=== PATIENT | female | born 1980 | race Caucasian/White ===

== ENCOUNTER 2018-07-29 17:12 | Emergency (ER) | payer MEDICAID ==
[~2018-07-29] VITALS: Ht 165.1 cm; Wt 63.6 kg
[2018-07-29 17:36] VITALS: BP 133/79
--- NOTE | 2018-07-29 18:52 | NUR ---
PT AMBUALTED TO ER BED 06
--- NOTE | 2018-07-29 19:10 | NUR ---
PT BIB self C/O L sided lower back pain x5 days. PT reports constant pain at 8/10 in L lower back. PT deneis fever, N/V/D, or burning urination. PT has been taking motrin for pain. ER MD to see PT. Safety precautions in place. Will Continue to monitor. medhx: R ovarian tumor and removal Rx: motrin
[2018-07-29] MEDS ORDERED: HYDROcodone/APAP 5/325 MG 1 TAB TAB PO ONE (19:55)
--- NOTE | 2018-07-29 20:09 | NUR ---
po pain meds given-nadr at this
--- NOTE | 2018-07-29 20:20 | NUR ---
PT returned from CT at this time.
[2018-07-29 21:08] VITALS: BP 116/68
== END 2018-07-29 21:06 | disposition home or self-care (01) ==
LOC: MED 17:12
DX: K59.00 Constipation, unspecified (principal); J45.909 Unspecified asthma, uncomplicated; M54.5 Low back pain
CPT/HCPCS: 81002; 81025; 99284

== ENCOUNTER 2018-09-07 16:54 | Emergency (ER) | payer MEDICAID ==
[~2018-09-07] VITALS: Ht 157.5 cm; Wt 56.7 kg
[2018-09-07 17:18] VITALS: BP 158/101
--- NOTE | 2018-09-07 19:48 | NUR ---
PT ambulated to bed 06.
--- NOTE | 2018-09-07 20:20 | NUR ---
PT TAKEN TO RADIOLOGY VIA WHEELCHAIR BY TECH.
--- NOTE | 2018-09-07 20:35 | NUR ---
PATIENT PRESENTS TO ED WITH NECK PAIN RADIATES TO LEFT ARM. PT STATES SHE HAS 9/10 BURNING, ACHING NECK PAIN THAT RADIATES TO LEFT ARM; FEELS HEAVE AND NUMB. MILD WEAKNESS TO LEFT HAND STRENGTH, SYMMETRICAL SMILE, NO FACIAL DROOPING, CLEAR SPEACH. PT STATES TO BE TAKING IBUPROFEN AT HOME W/O RELIEF. DENIES N/V/D; SKIN IS PINK/WARM/DRY; AAOX4 WITH EVEN AND STEADY GAIT; LUNGS CLEAR BL; HR EVEN AND REGULAR; PT DENIES ANY FEVER, CP, SOB, OR COUGH AT THIS TIME; VSS; PATIENT POSITIONED FOR COMFORT; HOB ELEVATED; BEDRAILS UP X1; BED DOWN. ER MD MADE AWARE OF PT STATUS. PMH: DENIES RX: DENIES
--- NOTE | 2018-09-07 20:57 | NUR ---
Dr. Mccauley evaluating patient at bedside.
[2018-09-07 21:49] VITALS: BP 166/85
--- NOTE | 2018-09-07 21:50 | NUR ---
Patient discharged with v/s stable. Written and verbal after care instructions given and explained. Patient alert, oriented and verbalized understanding of instructions. Ambulatory with steady gait. All questions addressed prior to discharge. ID band removed. Patient advised to follow up with PMD. Rx of ROBAXIN AND IBUPROFEN given. Patient educated on indication of medication including possible reaction and side effects. Opportunity to ask questions provided and answered.
== END 2018-09-07 21:50 | disposition home or self-care (01) ==
LOC: MED 16:54
DX: M62.838 Other muscle spasm (principal); M54.12 Radiculopathy, cervical region; J45.909 Unspecified asthma, uncomplicated
CPT/HCPCS: 72040; 99283

== ENCOUNTER 2019-06-15 15:21 | Emergency (ER) | payer MEDICAID ==
[~2019-06-15] VITALS: Ht 157.5 cm; Wt 59.0 kg
[2019-06-15 15:36] VITALS: BP 143/79
--- NOTE | 2019-06-15 15:40 | NUR ---
PT AMB TO BED 4.
--- NOTE | 2019-06-15 15:59 | NUR ---
PT PTESENTS TO ED WITH C/O PRODUCTIVE COUGH, SORE THROAT AND FEVER X 5 DAYS. PT PRESENTS WITH NO FEVER AT THIS TIME. PT STATES THAT SHE HAS HAD NAUSEA TODAY. BOWEL SOUNDS ACTIVE. PT STATES THAT SHE IS EXPERIENCING CHEST DISCOMFORT FROM COUGHING. PT STATES THAT SHE HAS A THROBBING HEADACHE AND RATES PAIN 8/10 AT THIS TIME. PT STATES THAT SHE TOOK TYLENOL SINUS AT 0930 TODAY. PT DENIES V/D, AND CP AT THIS TIME. SKIN IS WARM, PINK, AND DRY. PT PRESENTS WITH A CLEAR SPEECH AND IS CONVERSING APPROPRIATELY. PT IS POSITIONED FOR COMFORT, HOB ELEVATED, BED RAIL UP X 1. ER MD TO SEE PT. NKA HX: SINUS RX: DENIES
--- NOTE | 2019-06-15 16:13 | NUR ---
Patient being evaluated by LEILA ORTIZ at bedside.
--- NOTE | 2019-06-15 16:30 | NUR ---
X RAY AT BEDSIDE
[2019-06-15] MEDS ORDERED: ACETAMINOPHEN 325 MG TAB PO SCH (16:35)
--- NOTE | 2019-06-15 16:36 | NUR ---
Patient appears to be resting comfortably in bed. Respirations even and unlabored. Pt using cellphone at this time. Will continue to monitor.
[2019-06-15 16:51] VITALS: BP 136/82
--- NOTE | 2019-06-15 16:51 | NUR ---
Patient discharged with v/s stable. Written and verbal after care instructions given and explained. Patient alert, oriented and verbalized understanding of instructions. Ambulatory with steady gait. All questions addressed prior to discharge. ID band removed. Patient advised to follow up with PMD. Rx of FLONASE, AUGMENTIN, AND PROMETHAZINE given. Patient educated on indication of medication including possible reaction and side effects. Opportunity to ask questions provided and answered.
== END 2019-06-15 16:51 | disposition home or self-care (01) ==
LOC: MED 15:21
DX: J06.9 Acute upper respiratory infection, unspecified (principal); J45.909 Unspecified asthma, uncomplicated
CPT/HCPCS: 71045; 99283; Q0092

== ENCOUNTER 2019-09-17 09:05 | Emergency (ER) | payer MEDICAID, OTHER ==
[~2019-09-17] VITALS: Ht 157.5 cm; Wt 62.6 kg
[2019-09-17 09:10] VITALS: BP 155/79
--- NOTE | 2019-09-17 09:15 | NUR ---
PT TO ER BED 2
--- NOTE | 2019-09-17 09:18 | NUR ---
PT C/O EPISTAXIS SINCE 4AM TODAY ACCOMPANIED BY THROBBING FRONTAL HEADACHE THAT BEGAN LAST NIGHT. PT CURRENTLY HAS TISSUE PACKED IN R NARE. PT DENIES INJURY TO NOSE OR HEAD, NO NOTICABLE BLEEDING AT THIS TIME. REPORTS HEAVY MENTRUAL PEROIDS, DIZZINESS, FATIGUE OCCASIONALLY. PATIENT STATES PAIN OF 2/10 AT THIS TIME; VSS; PATIENT POSITIONED FOR COMFORT; HOB ELEVATED; BEDRAILS UP X1; BED DOWN. ER MD MADE AWARE OF PT STATUS.
[2019-09-17 10:17] LABS: BASOPHILS # (AUTO) 0.1 K/uL (0.00-0.22); BASOPHILS % (AUTO) 1.2 % (0.0-2.0); EOSINOPHILS # (AUTO) 0.1 K/uL (0-0.4); EOSINOPHILS % (AUTO) 1.6 % (0.0-4.0); HEMATOCRIT 24.5 % (36-48); HEMOGLOBIN 7.7 g/dL (12.0-16.0); LYMPHOCYTES # (AUTO) 1.3 K/uL (2.5-16.5); LYMPHOCYTES % (AUTO) 22.6 % (20.5-51.1); MEAN CORPUSCULAR HEMOGLOBIN 19 pg (27-31); MEAN CORPUSCULAR HGB CONC 32 g/dL (33-37); MEAN CORPUSCULAR VOLUME 61.4 fL (80-94); MONOCYTES # (AUTO) 0.4 K/uL (0.8-1.0); MONOCYTES % (AUTO) 7.1 % (1.7-9.3); NEUTROPHILS # (AUTO) 3.8 K/uL (1.8-7.7); NEUTROPHILS % (AUTO) 67.5 % (42.2-75.2); PLATELET COUNT (AUTO) 282 K/uL (140-450); RED BLOOD CELL COUNT(AUTO) 3.99 MIL/uL (4.20-5.40); RED CELL DISTRIBUTION WIDTH 18.7 % (11.6-13.7); WHITE BLOOD COUNT (AUTO) 5.6 K/uL (4.8-10.8)
[2019-09-17] MEDS ORDERED: KETOROLAC 30 MG/ML VIAL IVP ONE (11:15)
[2019-09-17] MEDS ORDERED: NACL 0.9% 1,000 ML IV ONE (11:15)
--- NOTE | 2019-09-17 11:15 | NUR ---
PT STATES HAVING 9/[address] ACOSTA NOTIFIED.
[2019-09-17] MEDS ORDERED: PANTOPRAZOLE 40 MG INJ VIAL IVP ONE (11:20)
[2019-09-17] MEDS ORDERED: ONDANSETRON 4 MG/2 ML VIAL IVP ONE (11:20)
--- NOTE | 2019-09-17 11:30 | NUR ---
PT IS RESTING IN THE BED W/ VSS.
[2019-09-17 12:14] LABS: HEMATOCRIT 26.9 % (36-48); HEMOGLOBIN 8.3 g/dL (12.0-16.0)
[2019-09-17 12:41] VITALS: BP 124/43
--- NOTE | 2019-09-17 12:42 | NUR ---
Patient discharged with v/s stable. Written and verbal after care instructions given and explained. Patient alert, oriented and verbalized understanding of instructions. Ambulatory with steady gait. All questions addressed prior to discharge. ID band removed. Patient advised to follow up with PMD. Rx of OXYMETAZOLINE given. Patient educated on indication of medication including possible reaction and side effects. Opportunity to ask questions provided and answered.
== END 2019-09-17 12:42 | disposition home or self-care (01) ==
LOC: MED 09:05
DX: R04.0 Epistaxis (principal); D64.9 Anemia, unspecified; R03.0 Elevated blood-pressure reading, without diagnosis of hypertension; J45.909 Unspecified asthma, uncomplicated; F14.90 Cocaine use, unspecified, uncomplicated; Z79.899 Other long term (current) drug therapy
CPT/HCPCS: 36415; 85018; 85025; 96374; 96375; 99284; C9113; J1885; J2405; J7030

== ENCOUNTER 2021-05-23 12:30 | Observation (INO) | payer OTHER ==
[~2021-05-23] VITALS: Ht 157.5 cm; Wt 59.0 kg
[2021-05-23 12:52] VITALS: BP 136/87
--- NOTE | 2021-05-23 12:55 | NUR ---
PT TO WAIT IN LOBBY
--- NOTE | 2021-05-23 13:27 | NUR ---
PT AMBULATED TO BED
--- NOTE | 2021-05-23 13:35 | NUR ---
40 Y FEMALE FROM HOME DUE TO ABDOMINAL PAIN X2 DAYS. PT STATED SHE HAS BEEN EXPERICNING UPPER/MID ABDOMINAL PAIN X2 DAYS. WITH NAUSEA/VOMITING. DENIES ANY CONSTIPATION OR DIARRHEA CHEST PAIN, SOB, OR CHILLS AT THIS TIME. PT HAS TAKEN TUMS AT HOME, BUT HAS PROVIDED NO RELIEF. PAIN IS CURRENTLY 8/10 THAT IS FELT LIKE A BURNING SENSATION. SOFT, NON TENDER. ACTIVE BOWEL SOUNDS. PMH: DENIES NKA
[2021-05-23 14:01] LABS: BASOPHILS # (AUTO) 0.1 K/uL (0.00-0.22); BASOPHILS % (AUTO) 1.5 % (0.0-2.0); EOSINOPHILS # (AUTO) 0.1 K/uL (0-0.4); EOSINOPHILS % (AUTO) 1.2 % (0.0-4.0); HEMATOCRIT 23.2 % (36-48); LYMPHOCYTES # (AUTO) 1.5 K/uL (2.5-16.5); LYMPHOCYTES % (AUTO) 27.7 % (20.5-51.1); MEAN CORPUSCULAR HEMOGLOBIN 17 pg (27-31); MEAN CORPUSCULAR HGB CONC 30 g/dL (33-37); MEAN CORPUSCULAR VOLUME 57.6 fL (80-94); MONOCYTES # (AUTO) 0.5 K/uL (0.8-1.0); MONOCYTES % (AUTO) 10.1 % (1.7-9.3); NEUTROPHILS # (AUTO) 3.2 K/uL (1.8-7.7); NEUTROPHILS % (AUTO) 59.5 % (42.2-75.2); PLATELET COUNT (AUTO) 351 K/uL (140-450); RED BLOOD CELL COUNT(AUTO) 4.04 MIL/uL (4.20-5.40); RED CELL DISTRIBUTION WIDTH 20.6 % (11.6-13.7); WHITE BLOOD COUNT (AUTO) 5.3 K/uL (4.8-10.8)
[2021-05-23 14:21] LABS: HEMOGLOBIN 6.9 g/dL (12.0-16.0)
[2021-05-23 14:30] LABS: ALBUMIN 3.6 g/dL (3.4-5.0); ANION GAP 12.3 (8-16); CARBON DIOXIDE 25.7 mmol/L (21-32); CREATININE 0.6 mg/dL (0.6-1.3); TOTAL BILIRUBIN 0.3 mg/dL (0.0-1.0)
--- NOTE | 2021-05-23 14:37 | NUR ---
DR SANTOYO AT BEDSIDE EXAMINING PT
[2021-05-23] MEDS ORDERED: ONDANSETRON 4 MG/2 ML VIAL IVP ONE (14:50)
[2021-05-23] MEDS ORDERED: NACL 0.9% 1,000 ML IV ONE (14:50)
[2021-05-23] MEDS ORDERED: ACETAMINOPHEN 325 MG TAB PO ONE (15:15)
[2021-05-23] MEDS ORDERED: MORPHINE SULFATE 2 MG/ML SYR IVP PRN (15:30)
[2021-05-23] MEDS ORDERED: ONDANSETRON 4 MG/2 ML VIAL IVP PRN (15:30)
[2021-05-23] MEDS ORDERED: LORazepam 2 MG/ML VIAL IVP PRN (15:30)
[2021-05-23] MEDS ORDERED: HYDROcodone/APAP 5/325 MG 1 TAB TAB PO PRN (15:30)
[2021-05-23] MEDS ORDERED: ACETAMINOPHEN 325 MG TAB PO PRN (15:30)
[2021-05-23 16:13] LABS: CREATINE KINASE MB 0.2 ng/mL (0-3.6)
--- NOTE | 2021-05-23 16:58 | NUR ---
RECEIVED PATIENT FROM ER FOR CONTINUITY OF CARE. PATIENT IS BEING ADMITTED FOR ANEMIA. CURRENT H&H IS 6.9 AND 23.2. PATIENT REPORTS TO HAVE HAD N/V FOR 2 DAYS. PATIENT'S RESPIRATIONS ARE EVEN AND UNLABORED ON ROOM AIR . NO COMPLAINTS OF PAIN OR NAUSEA AT THIS TIME. IV IS A 20G AT THE LEFT AC. IV SITE IS DRY, PATENT, INTACT AND FLUSHING WELL. NO S/S OF DISTRESS. ALL SAFETY PRECAUTIONS IN PLACE.
--- NOTE | 2021-05-23 17:00 | NUR ---
Grace vasquez in EDM - 05/23/21 at 1710 by GRACIELA Patient will be admitted to care of DR ALVAREZ. Admited to . Will go to room. Belongings list completed. Report to .
--- NOTE | 2021-05-23 17:00 | NUR ---
Patient will be admitted to care of DR ALVAREZ. Admited to MED SURG. Will go to room 106B. Belongings list completed. Report to PRABHA WASSERMAN.
--- NOTE | 2021-05-23 19:30 | NUR ---
ENDORSED PATIENT TO MATH AND PHYSICS INSTRUCTOR RN FOR CONTINUITY OF CARE. PATIENT IS STABLE.
--- NOTE | 2021-05-23 19:35 | NUR ---
RECEIVED PT FROM DAY SHIFT NURSE FOR CONTINUITY OF CARE.PT AWAKE, ALERT AND ORIENTED. ON RA.WITH IV ON LAC G 20 INFUSING WELL.PT NOT IN ANY S/SX OF DISTRESS. ALL PRECAUTIONS IN PLACE. CALL LIGHT WITHIN REACH. WILL CONTINUE TO MONITOR.
[2021-05-23 20:00] VITALS: BP 110/67
--- NOTE | 2021-05-24 00:05 | NUR ---
BLOOD TRANSFUSION STARTED AT 50ML/HR, INFUSING WELL. STAYED WITH THE PT FOR 15MINS. NO ADVERSE REACTION WAS OBSERVED. INFUSION WAS BUMPED UP TO 110ML/HR. STILL TOLERATING.INFUSING WELL. CALL LIGHT WITHIN REACH. WILL CONTINUE TO MONITOR FOR THE NEXT 15MINS.
--- NOTE | 2021-05-24 01:35 | NUR ---
VITAL SIGNS WITHIN NORMAL LIMITS. NO ADVERSE REACTION OBSERVED. INFUSION RATE WAS KEPT AT 110ML/HR. INFUSING WELL. HEADACHE IMPROVED AN HOUR AFTER TYLENOL WAS GIVEN PRIOR THE INFUSION.WILL CONTINUE TO MONITOR.
--- NOTE | 2021-05-24 03:40 | NUR ---
BLOOD TRANSFUSION DONE. PT TOLERATED WELL. VITAL SIGNS ARE STABLE. PT NOT IN ANY DISTRESS AT THIS TIME.CALL LIGHT WITHIN REACH.WILL CONTINUE TO MONITOR.
[2021-05-24 04:00] VITALS: BP 105/61
--- NOTE | 2021-05-24 04:20 | NUR ---
PT ASLEEP. VISIBLE CHEST AND RISE FALL NOTED.CALL LIGHT WITHIN REACH. WILL CONTINUE TO MONITOR
--- NOTE | 2021-05-24 06:47 | NUR ---
PT STABLE. NO ACUTE EVENTS THROUGHOUT THE NIGHT.PT NOT IN ANY DISTRESS AND NO COMPLAINS AT THIS TIME. ALL NEEDS ATTENDED.WILL ENDORSE TO AM SHIFT NURSE. WILL CONTINUE TO MONITOR.
--- NOTE | 2021-05-24 07:24 | NUR ---
ALL REPORTS WERE GIVEN TO INCOMING RN, TRANSFER OF CARE WAS ENDORSED.
[2021-05-24] MEDS ORDERED: PANTOPRAZOLE 40 MG INJ VIAL IVP SCH (09:00)
[2021-05-24] MEDS ORDERED: ENOXAPARIN 40 MG/0.4 ML SYR SUBQ SCH (09:00)
--- NOTE | 2021-05-24 09:05 | NUR ---
PATIENT HAS BEEN SCREENED AND CATEGORIZED HIGH NUTRITION RISK. PATIENT WILL BE SEEN WITHIN 1-2 DAYS OF ADMISSION. 05/24/21-05/25/[address]
[2021-05-24 10:45] LABS: BASOPHILS % (AUTO) 0.8 % (0.0-2.0); EOSINOPHILS # (AUTO) 0.1 K/uL (0-0.4); EOSINOPHILS % (AUTO) 1.2 % (0.0-4.0); HEMATOCRIT 28.4 % (36-48); LYMPHOCYTES # (AUTO) 1.1 K/uL (2.5-16.5); LYMPHOCYTES % (AUTO) 19.7 % (20.5-51.1); MEAN CORPUSCULAR HEMOGLOBIN 18 pg (27-31); MEAN CORPUSCULAR HGB CONC 30 g/dL (33-37); MEAN CORPUSCULAR VOLUME 59.8 fL (80-94); MONOCYTES # (AUTO) 0.4 K/uL (0.8-1.0); MONOCYTES % (AUTO) 6.6 % (1.7-9.3); NEUTROPHILS % (AUTO) 71.7 % (42.2-75.2); PLATELET COUNT (AUTO) 358 K/uL (140-450); RED BLOOD CELL COUNT(AUTO) 4.75 MIL/uL (4.20-5.40); RED CELL DISTRIBUTION WIDTH 21.9 % (11.6-13.7); WHITE BLOOD COUNT (AUTO) 5.6 K/uL (4.8-10.8)
[2021-05-24 10:58] LABS: ANION GAP 14.5 (8-16); CARBON DIOXIDE 25.7 mmol/L (21-32); CREATININE 0.7 mg/dL (0.6-1.3); POTASSIUM 4.2 mmol/L (3.5-5.1)
[2021-05-24 11:03] LABS: HEMOGLOBIN 8.6 g/dL (12.0-16.0)
[2021-05-24 12:00] VITALS: BP 106/70
[2021-05-24 13:48] VITALS: BP 106/70
--- NOTE | 2021-05-24 14:26 | NUR ---
Patient discharged and was given education on medications, disease process and all questions regarding discharge answered. Patient take off unit and had no further needs.
== END 2021-05-24 14:30 | disposition home or self-care (01) ==
LOC: MED 12:30 → MTU 15:31
PROVIDERS: ADMIT Hospitalist; ATTEND Hospitalist
DX: N92.0 Excessive and frequent menstruation with regular cycle (principal); D50.0 Iron deficiency anemia secondary to blood loss (chronic); R10.9 Unspecified abdominal pain; R11.2 Nausea with vomiting, unspecified
CPT/HCPCS: 36415; 36430; 74018; 76705; 80048; 80053; 82550; 82553; 83540; 83690; 84484; 85025; 86886; 86900; 86901; 86920; 96361; 96374; 96375; 99285; C9113; G0378; J2405; P9016; Q0092; J1650

== ENCOUNTER 2022-12-09 08:21 | Inpatient (IN) | payer OTHER ==
[~2022-12-09] VITALS: Ht 157.5 cm; Wt 61.4 kg
[2022-12-09 08:33] VITALS: BP 146/73
--- NOTE | 2022-12-09 08:42 | NUR ---
TO TAMARA TOLENTINO 10. COMFORT MEASURES AND SUPPORTIVE CARE INITIATED. PREP FOR ERMD EVAL. VSS. NAD. CONTINUED CARE ENDORSED TO PRIMARY RN.
[2022-12-09 09:56] LABS: BASOPHILS % (AUTO) 0.6 % (0.0-2.0); EOSINOPHILS % (AUTO) 0.1 % (0.0-4.0); LYMPHOCYTES # (AUTO) 0.9 K/uL (2.5-16.5); LYMPHOCYTES % (AUTO) 13.6 % (20.5-51.1); MEAN CORPUSCULAR HEMOGLOBIN 16 pg (27-31); MEAN CORPUSCULAR HGB CONC 29 g/dL (33-37); MEAN CORPUSCULAR VOLUME 54.1 fL (80-94); MONOCYTES # (AUTO) 0.5 K/uL (0.8-1.0); MONOCYTES % (AUTO) 7.8 % (1.7-9.3); NEUTROPHILS # (AUTO) 5.4 K/uL (1.8-7.7); NEUTROPHILS % (AUTO) 77.9 % (42.2-75.2); PLATELET COUNT (AUTO) 259 K/uL (140-450); RED BLOOD CELL COUNT(AUTO) 3.88 MIL/uL (4.20-5.40)
[2022-12-09] MEDS ORDERED: ACETAMINOPHEN EXTRA STRENGTH 500 MG TAB PO ONE (10:00)
[2022-12-09 10:07] LABS: APPEARANCE,URINE CLEAR (CLEAR); BILIRUBIN,URINE NEGATIVE (NEGATIVE); BLOOD, URINE NEGATIVE (NEGATIVE); COLOR,URINE YELLOW (YELLOW); LEUKOCYTE ESTERASE ,URINE TRACE (NEGATIVE); NITRITE, URINE NEGATIVE (NEGATIVE); UGLUCOSE NEGATIVE (NEGATIVE)
[2022-12-09 10:09] LABS: HEMOGLOBIN 6.1 g/dL (12.0-16.0); PROTHROMBIN TIME 10.1 secs (10.8-13.4)
--- NOTE | 2022-12-09 10:09 | NUR ---
LAB REPORTED LOW H/H 6.1 AND 21.0 MD NOTIFIED. PRIMARY RN NOTIFIED
--- NOTE | 2022-12-09 10:10 | NUR ---
MD ABURTO NOTIFIED LOW HGC/HCT. 6.08/10.0. VSS. NAD NOTED. WILL CONT TO MONITOR PT. NO NEW ORDERS RECEIVED.
[2022-12-09 10:11] LABS: ALBUMIN 3.6 g/dL (3.4-5.0); ANION GAP 12.3 (8-16); CARBON DIOXIDE 25.3 mmol/L (21-32); CREATININE 0.7 mg/dL (0.6-1.3); POTASSIUM 3.6 mmol/L (3.5-5.1); TOTAL BILIRUBIN 0.3 mg/dL (0.0-1.0)
[2022-12-09 10:17] LABS: RBC,URINE 0-5 /HPF (0-5)
--- NOTE | 2022-12-09 10:41 | NUR ---
LAB REPORTED FLU A / B POSITIVE MD NOTIFIED. PRIMARY RN NOTIFIED
--- NOTE | 2022-12-09 10:42 | NUR ---
PT. GIVEN AN MASK TO WEAR AT ALL TIMES IN ER
--- NOTE | 2022-12-09 15:05 | NUR ---
PER BLOOD BANK, PT POSTIVE FOR ANTIBODIES, TO REDRAW TYPE AND SCREEN. IF PATIENT POSITIVE FOR ANTIBODIES AGAIN, NEED TO REQUEST 1 UNIT PRBCS FROM [facility]. TRANSFUSION MAY BE DELAYED FURTHER. MD ABURTO AND PATIENT UPDATED ON PLAN OF CARE AND STATUS. VSS. NAD NOTED. WILL CONT TO MONITOR PT.
[2022-12-09] MEDS ORDERED: KETOROLAC 15 MG/ML VIAL IVP ONE (19:15)
[2022-12-09] MEDS ORDERED: CLINDAMYCIN 150 MG CAP PO SCH (19:15)
--- NOTE | 2022-12-09 19:30 | NUR ---
Assumed care of patient at change of shift. Introduced self to patient, positioned for comfort, bed to low position sr up, continue to monitor.
--- NOTE | 2022-12-09 19:40 | NUR ---
Patient medicated as ordered w/ toradol and clindamycin, will observe for any adverse reaction. Bed to low position sr up, continue to monitor.
[2022-12-09] MEDS ORDERED: KCL 20 MEQ IN 100 mL PREMIX 200 ML IV PRN (20:55)
[2022-12-09] MEDS ORDERED: ONDANSETRON 4 MG/2 ML VIAL IVP PRN (20:55)
[2022-12-09] MEDS ORDERED: MAGNESIUM OXIDE 400 MG TAB PO PRN (20:55)
[2022-12-09] MEDS ORDERED: HYDROcodone/APAP 5/325 MG 1 TAB TAB PO PRN (20:55)
[2022-12-09] MEDS ORDERED: POTASSIUM CHLORIDE 10 MEQ TABER PO PRN (20:55)
[2022-12-09] MEDS ORDERED: VANCOMYCIN PER PHARMACY MC PRN (20:55)
[2022-12-09] MEDS ORDERED: MAG SULF 2000 MG/WATER PREMIX 50 ML IV PRN (20:55)
[2022-12-09] MEDS ORDERED: MORPHINE SULFATE 4 MG/ML SYR IVP PRN (20:55)
--- NOTE | 2022-12-09 21:16 | NUR ---
Patient resting comfortably at this time in no acute distress. Bed to low position sr up, continue to monitor.
[2022-12-09] MEDS: NACL 0.9% 1,000 ML IV SCH (21:43)
--- NOTE | 2022-12-09 21:56 | NUR ---
Report called and given to Veronica WASSERMAN ext [phone] for room 115. Patient informed of admission then verbalized understanding and reason for admission.
[2022-12-09] MEDS ORDERED: VANCOMYCIN 1.25GM PREMIX 250 ML IV NR (22:00)
--- NOTE | 2022-12-09 22:10 | NUR ---
PATIENT WAS ADMITTED TO MST UNIT VIA WHEELCHAIR FROM ER AWAKE ALERT ORIENTED X4 VERBALLY RESPONSIVE WITH CC: LEFT EYE SWELLING WITH FEVER AND BODY ACHES. DX: CELLULITIS , ANEMIA. PATIENT IS AMBULATORY. BED WHEELS LOCKED IN LOW POSITION. IVF NS STARTED. VANCOMYCIN ADMINISTERED ORDERED. NASAL SWAB DONE FOR MRSA. CALL LIGHT WITHIN REACH. DROPLET ISOLATION OBSERVED FOR INFLUENZA A&B POSITIVE. V/S: 115/61, 80, 18, 98.3, 100% RA. NEEDS ATTENDED TO. WILL CONTINUE TO MONITOR.
[2022-12-09] MEDS ORDERED: VANCOMYCIN 500 MG VIAL ONE (22:47)
[2022-12-09] MEDS ORDERED: VANCOMYCIN 1,000 MG VIAL ONE (22:53)
[2022-12-10 04:00] VITALS: BP 115/61
[2022-12-10 06:47] LABS: CARBON DIOXIDE 23.7 mmol/L (21-32); CREATININE 0.6 mg/dL (0.6-1.3); MAGNESIUM 1.9 mg/dL (1.8-2.4); POTASSIUM 3.7 mmol/L (3.5-5.1); TOTAL BILIRUBIN 0.3 mg/dL (0.0-1.0)
[2022-12-10 07:04] LABS: BASOPHILS % (AUTO) 0.5 % (0.0-2.0); EOSINOPHILS % (AUTO) 0.9 % (0.0-4.0); LYMPHOCYTES # (AUTO) 0.9 K/uL (2.5-16.5); LYMPHOCYTES % (AUTO) 17.5 % (20.5-51.1); MEAN CORPUSCULAR HEMOGLOBIN 16 pg (27-31); MEAN CORPUSCULAR HGB CONC 30 g/dL (33-37); MONOCYTES # (AUTO) 0.5 K/uL (0.8-1.0); MONOCYTES % (AUTO) 8.8 % (1.7-9.3); NEUTROPHILS # (AUTO) 3.8 K/uL (1.8-7.7); NEUTROPHILS % (AUTO) 72.3 % (42.2-75.2); PLATELET COUNT (AUTO) 233 K/uL (140-450); RED BLOOD CELL COUNT(AUTO) 3.63 MIL/uL (4.20-5.40); RED CELL DISTRIBUTION WIDTH 20.5 % (11.6-13.7); WHITE BLOOD COUNT (AUTO) 5.3 K/uL (4.8-10.8)
[2022-12-10 07:22] LABS: HEMOGLOBIN 5.9 g/dL (12.0-16.0)
[2022-12-10 07:23] LABS: HEMATOCRIT 19.6 % (36-48)
[2022-12-10 08:00] VITALS: BP 100/39
[2022-12-10] MEDS: ACETAMINOPHEN 325 MG TAB PO PRN ×3 (09:09→15:51)
--- NOTE | 2022-12-10 09:18 | NUR ---
PATIENT HAS BEEN SCREENED AND CATEGORIZED LOW NUTRITION RISK. PATIENT WILL BE SEEN WITHIN 7 DAYS OF ADMISSION. 12/16/22 REVIEW[address]A [address] RD
[2022-12-10] MEDS: NACL 0.9% 1,000 ML IV SCH ×2 (09:37→21:55)
--- NOTE | 2022-12-10 10:00 | NUR ---
CALLED BLOOD BANK REGARDING BLOOD, PER TECH BLOOD IS COMING FROM OUTSIDE STILL NOT READY WILL CALL WHEN AVAILABLE
[2022-12-10] MEDS: VANCOMYCIN 1.25GM PREMIX 250 ML IV SCH ×2 (11:28→22:59)
[2022-12-10] MEDS ORDERED: diphenhydrAMINE 50 MG/ML VIAL IVP ONE (15:35)
[2022-12-10] MEDS ORDERED: diphenhydrAMINE 50 MG/ML VIAL ONE (15:39)
--- NOTE | 2022-12-10 15:46 | NUR ---
BLOOD TRANSFUSION BEGAN AT 1500, AFTER 15 MINS PT. STATES FEELING HOT AND LOWER BACK PAIN, STOPPED TRANSFUSION NOTIFIED STATES JAQUI TO GIVE TYLENOL AND BENADRYL.
[2022-12-10] MEDS ORDERED: diphenhydrAMINE 50 MG/ML VIAL IVP PRN (15:50)
[2022-12-10 16:00] VITALS: BP 108/61
--- NOTE | 2022-12-10 17:30 | NUR ---
BLOOD TRANSFUSION COMPLETED, NO OTHER S/S OF REACTION OTHER THAN PREVIOUSLY NOTED AFTER BENADRYL AND TYLENOL ADMINISTRATION
[2022-12-10] MEDS: OSELTAMIVIR PHOSPHATE 75 MG CAP PO SCH (20:05)
[2022-12-10 23:36] LABS: HEMATOCRIT 22.1 % (36-48)
[2022-12-10 23:57] LABS: HEMOGLOBIN 6.8 g/dL (12.0-16.0)
[2022-12-11 04:00] VITALS: BP 110/65
[2022-12-11 07:09] LABS: ALBUMIN 2.9 g/dL (3.4-5.0); ANION GAP 13.1 (8-16); CARBON DIOXIDE 22.8 mmol/L (21-32); CREATININE 0.5 mg/dL (0.6-1.3); MAGNESIUM 1.9 mg/dL (1.8-2.4); POTASSIUM 3.9 mmol/L (3.5-5.1); TOTAL BILIRUBIN 0.2 mg/dL (0.0-1.0)
--- NOTE | 2022-12-11 07:30 | NUR ---
RECEIVED PT FROM PARK KEEPER NURSE FOR CONTINUITY OF CARE. PT IS AWAKE, AOX4. ABLE TO VERBALIZE NEEDS. RESPIRATIONS EVEN AND UNLABORED ON RA. IV ON LAC 20G INFUSING NS @ 80. ALL SAFETY PRECAUTIONS IN PLACE. CALL LIGHT WITHIN REACH.
[2022-12-11 07:52] LABS: BASOPHILS % (AUTO) 0.6 % (0.0-2.0); EOSINOPHILS # (AUTO) 0.2 K/uL (0-0.4); EOSINOPHILS % (AUTO) 3.9 % (0.0-4.0); HEMATOCRIT 22.5 % (36-48); LYMPHOCYTES # (AUTO) 1.2 K/uL (2.5-16.5); LYMPHOCYTES % (AUTO) 23.6 % (20.5-51.1); MEAN CORPUSCULAR HEMOGLOBIN 18 pg (27-31); MEAN CORPUSCULAR HGB CONC 31 g/dL (33-37); MEAN CORPUSCULAR VOLUME 58.3 fL (80-94); MONOCYTES # (AUTO) 0.4 K/uL (0.8-1.0); MONOCYTES % (AUTO) 7.6 % (1.7-9.3); NEUTROPHILS # (AUTO) 3.2 K/uL (1.8-7.7); NEUTROPHILS % (AUTO) 64.3 % (42.2-75.2); PLATELET COUNT (AUTO) 193 K/uL (140-450); RED BLOOD CELL COUNT(AUTO) 3.85 MIL/uL (4.20-5.40); RED CELL DISTRIBUTION WIDTH 24.4 % (11.6-13.7)
[2022-12-11 08:00] VITALS: BP 109/49
--- NOTE | 2022-12-11 08:00 | NUR ---
WENT IN ROOM PT STATES "I ALREADY TOLD THE SURGICAL DRESSING MAKER NURSE ABOUT THIS BUT A PATIENT CAME INTO MY ROOM LAST NIGHT AND SAT ON THE BED". INFORMED FIRE ENGINE PUMP OPERATOR PAT, CHARGE NURSE, AND MST DIRECTOR OF PATIENTS REPORT. MOVED OWN WORK STATION, STATIONED COMPUTER OUTSIDE PT ROOM.
[2022-12-11 08:02] LABS: HEMOGLOBIN 6.9 g/dL (12.0-16.0)
[2022-12-11] MEDS: OSELTAMIVIR PHOSPHATE 75 MG CAP PO SCH (08:53)
[2022-12-11] MEDS: ACETAMINOPHEN 325 MG TAB PO PRN (08:54)
[2022-12-11] MEDS ORDERED: IRON SUCROSE COMPLEX 100 MG/5 ML VIAL IVP SCH (09:30)
[2022-12-11] MEDS: NACL 0.9% 1,000 ML IV SCH (11:01)
[2022-12-11] MEDS ORDERED: VANCOMYCIN 1,000 MG in DEXTROSE 5% 250 ML IV SCH (13:00)
[2022-12-11] MEDS ORDERED: TAM75 PO (13:22)
[2022-12-11] MEDS ORDERED: CLIN300C2 PO (13:23)
[2022-12-11 15:20] VITALS: BP 109/49
--- NOTE | 2022-12-11 16:08 | NUR ---
DISCUSSED DISCHARGE PACKET WITH PT. NAME BAND AND IV REMOVED. ALL BELONGINGS TAKEN BY PT. PT TAKEN VIA WHEELCHAIR TO FRONT OF ER. PT IN STABLE CONDITION. DC TO HOME.
--- NOTE | 2022-12-13 14:23 | NUR ---
CALLED DR JOSE [facility]RANADOS [facility] [address] [id number] AND SPOKE WITH GUS WHO INFORMED ME THAT PATIENT NEED TO CALL HERSELF DUE TO BEING A NEW PATIENT. CALLED PATIENT AND INFORMED HER OF THE ABOVE INFORMATION.
[2022-12-16] MEDS ORDERED: CLIN300C2 PO (12:39)
[2022-12-16] MEDS ORDERED: TAM75 PO (12:40)
== END 2022-12-11 16:23 | disposition home or self-care (01) | DRG 720 ==
LOC: MED 08:21 → MTU 20:55
PROVIDERS: ADMIT Student in an Organized Health Care Education/Training Program; ATTEND Student in an Organized Health Care Education/Training Program
PROC: 30233N1 Transfusion of Nonautologous Red Blood Cells into Peripheral Vein, Percutaneous Approach (ICD-10-PCS; principal; 2022-12-10)
DX: A41.9 Sepsis, unspecified organism (principal); D62 Acute posthemorrhagic anemia; J10.1 Influenza due to other identified influenza virus with other respiratory manifestations; L03.213 Periorbital cellulitis; Z20.822 Contact with and (suspected) exposure to COVID-19
CPT/HCPCS: 36415; 36430; 70450; 70480; 80053; 80202; 81001; 83735; 85018; 85025; 85610; 85651; 85730; 86140; 86870; 86886; 86900; 86901; 86920; 87081; 87086; 96374; 99285; J1200; J1756; J1885; J3370; J3372; J7060; P9016

== ENCOUNTER 2022-12-14 12:37 | Emergency (ER) | payer OTHER ==
[~2022-12-14 12:37] MED LIST: CLIN300C2 PO; TAM75 PO
--- NOTE | 2022-12-14 13:20 | NUR ---
patient left before triage. Seeking assistance with pharmacy correction. Called discharge MD Brooks to transfer persciption to correct pharmacy. [facility] [place] [facility] patient, would like corrected to [facility] in [place]. advised patient to call pharmacy in 1 hour.
[2022-12-16] MEDS ORDERED: CLIN300C2 PO (12:39)
[2022-12-16] MEDS ORDERED: TAM75 PO (12:40)
== END 2022-12-14 13:20 | disposition left against medical advice (07) ==
LOC: MED 12:37
DX: H57.10 Ocular pain, unspecified eye (principal); Z53.21 Procedure and treatment not carried out due to patient leaving prior to being seen by health care provider

== ENCOUNTER 2023-04-24 17:37 | Emergency (ER) | payer OTHER ==
[~2023-04-24] VITALS: Ht 157.5 cm; Wt 60.8 kg
[2023-04-24 17:54] VITALS: BP 143/85; PULSE 69; RESP 14; TEMP 97.4; O2SAT 100
[2023-04-24 18:33] LABS: BASOPHILS # (AUTO) 0.1 K/uL (0.00-0.22); BASOPHILS % (AUTO) 1.3 % (0.0-2.0); EOSINOPHILS # (AUTO) 0.1 K/uL (0-0.4); HEMATOCRIT 24.7 % (36-48); HEMOGLOBIN 7.6 g/dL (12.0-16.0); LYMPHOCYTES # (AUTO) 1.5 K/uL (2.5-16.5); LYMPHOCYTES % (AUTO) 22.3 % (20.5-51.1); MEAN CORPUSCULAR HEMOGLOBIN 19 pg (27-31); MEAN CORPUSCULAR HGB CONC 31 g/dL (33-37); MEAN CORPUSCULAR VOLUME 61.3 fL (80-94); MONOCYTES # (AUTO) 0.5 K/uL (0.8-1.0); MONOCYTES % (AUTO) 7.1 % (1.7-9.3); NEUTROPHILS # (AUTO) 4.7 K/uL (1.8-7.7); NEUTROPHILS % (AUTO) 67.3 % (42.2-75.2); PLATELET COUNT (AUTO) 345 K/uL (140-450); RED BLOOD CELL COUNT(AUTO) 4.04 MIL/uL (4.20-5.40); RED CELL DISTRIBUTION WIDTH 19.2 % (11.6-13.7); WHITE BLOOD COUNT (AUTO) 6.9 K/uL (4.8-10.8)
[2023-04-24 18:57] LABS: ANION GAP 11.1 (8-16); CALCIUM 9.2 mg/dL (8.5-10.1); CARBON DIOXIDE 25.6 mmol/L (21-32); CREATININE 0.7 mg/dL (0.6-1.3); POTASSIUM 3.7 mmol/L (3.5-5.1)
[2023-04-24 19:00] VITALS: BP 150/93; PULSE 81; RESP 18; TEMP 98.6; O2SAT 100
== END 2023-04-24 19:36 | disposition home or self-care (01) ==
LOC: MED 17:37
DX: N93.9 Abnormal uterine and vaginal bleeding, unspecified (principal); Z79.899 Other long term (current) drug therapy
CPT/HCPCS: 36415; 76856; 80048; 81025; 85025; 99284; Q0092

== ENCOUNTER 2023-05-20 17:50 | Emergency (ER) | payer OTHER ==
[~2023-05-20] VITALS: Ht 157.5 cm; Wt 60.8 kg
[2023-05-20 17:53] VITALS: BP 136/93; PULSE 83; RESP 18; TEMP 97.9; O2SAT 99
[2023-05-20] MEDS ORDERED: KETOROLAC 30 MG/ML VIAL IM ONE (18:20)
[2023-05-20] MEDS ORDERED: ACET-2619 PO (20:03)
[2023-05-20] MEDS ORDERED: IBUP-2213 PO (20:03)
[2023-05-20 20:16] VITALS: BP 136/93; PULSE 83; RESP 18; TEMP 97.9; O2SAT 99
== END 2023-05-20 20:16 | disposition home or self-care (01) ==
LOC: MED 17:50
DX: S40.011A Contusion of right shoulder, initial encounter (principal); Z79.899 Other long term (current) drug therapy; Z79.1 Long term (current) use of non-steroidal anti-inflammatories (NSAID); W10.8XXA Fall (on) (from) other stairs and steps, initial encounter; Y92.89 Other specified places as the place of occurrence of the external cause; Y93.89 Activity, other specified; Y99.8 Other external cause status
CPT/HCPCS: 73030; 81025; 96372; 99283; J1885

== ENCOUNTER 2023-09-05 15:47 | Emergency (ER) | payer OTHER ==
[~2023-09-05] VITALS: Ht 157.5 cm; Wt 59.0 kg
[~2023-09-05 15:47] MED LIST changes: +ACET-2619 PO; +IBUP-2213 PO
[2023-09-05 16:02] VITALS: BP 114/76; PULSE 79; RESP 16; TEMP 98.7; O2SAT 100
[2023-09-05] MEDS: KETOROLAC 30 MG/ML VIAL IM ONE (16:55)
[2023-09-05] MEDS ORDERED: IBUP-2213 PO (17:24)
== END 2023-09-05 17:40 | disposition home or self-care (01) ==
LOC: MED 15:47
DX: G56.02 Carpal tunnel syndrome, left upper limb (principal); Z79.899 Other long term (current) drug therapy
CPT/HCPCS: 29125; 73130; 81025; 96372; 99283; J1885